=== PATIENT | male | born 1995 | race Caucasian/White ===

== ENCOUNTER 2022-07-03 17:54 | Emergency (ER) | payer SELFPAY ==
[2022-07-03 18:06] VITALS: BP 135/78; PULSE 113; RESP 18; TEMP 36.3; O2SAT 98; BMI 23.1
[2022-07-03 19:13] LABS: Basophils # 0.1 10^3/uL (0.0-0.1); Basophils % 0.4 %; Eosinophils # 0.1 10^3/uL (0.0-0.8); Eosinophils % 0.4 %; Hematocrit 45.9 % (42.0-52.0); Hemoglobin 15.8 g/dL (11.7-16.6); Lymphocytes # 2.3 10^3/uL (0.8-4.8); Lymphocytes % 18.8 %; Mean Corpuscular HGB Conc 34.4 g/dL (30.0-36.0); Mean Corpuscular Hemoglobin 30.6 pg (28.0-34.0); Mean Platelet Volume 12.5 fL (7.4-10.4); Monocytes # 0.8 10^3/uL (0.2-0.9); Monocytes % 6.4 %; Neutrophils # 9.02 10^3/uL (1.8-7.7); Neutrophils % 73.7 %; Nucleated Red Blood Cells % 0 %; Platelet Count 198 10^3/cmm (130-400); Red Blood Count 5.16 10^6/uL (4.1-5.3); Red Cell Distribution Width 12.2 % (12.1-15.1); White Blood Count 12.3 10^3/uL (4.0-10.0)
--- NOTE | 2022-07-03 19:18 | CTR_ITS ---
PROCEDURE INFORMATION: Exam: CT Abdomen And Pelvis With Contrast Exam date and time: 07/03/2022 7:32 PM Age: 26 years old Clinical indication: Abdominal pain; Localized; Left upper quadrant (luq); Additional info: Luq pain TECHNIQUE: Imaging protocol: Computed tomography of the abdomen and pelvis with contrast. Radiation optimization: All CT scans at this facility use at least one of these dose optimization techniques: automated exposure control; mA and/or kV adjustment per patient size (includes targeted exams where dose is matched to clinical indication); or iterative reconstruction. Contrast material: OMNI 350; Contrast volume: 100 ml; Contrast route: INTRAVENOUS (IV); COMPARISON: No relevant prior studies available. RADIATION DOSE METRICS: Total DLP (mGy-cm): 499.8 FINDINGS: Liver: Normal. No mass. Gallbladder and bile ducts: Normal. No calcified stones. No ductal dilation. Pancreas: Normal. No ductal dilation. Spleen: Normal. No splenomegaly. Adrenal glands: Normal. No mass. Kidneys and ureters: Normal. No hydronephrosis. Stomach and bowel: Left colon wall thickening may reflect a colitis in the appropriate clinical setting. Appendix: No evidence of appendicitis. Intraperitoneal space: Unremarkable. No free air. No significant fluid collection. Vasculature: Unremarkable. No abdominal aortic aneurysm. Lymph nodes: Unremarkable. No enlarged lymph nodes. Urinary bladder: Unremarkable as visualized. Reproductive: Unremarkable as visualized. Bones/joints: Unremarkable. No acute fracture. Soft tissues: Unremarkable. CT/CT abdomen pelvis w con* [id number] IMPRESSION: Left colon wall thickening may reflect a colitis in the appropriate clinical setting.
--- NOTE | 2022-07-03 19:19 | W.ED.ABDPA2 ---
HPI - Abdominal Pain General: Chief Complaint: Abdominal Pain Stated Complaint: Abd Pain Time Seen by Provider: 07/03/22 19:08 History of Present Illness: 26-year-old male with alcoholism history. He has not drank in 3 to 4 months. He does have a history of alcoholic pancreatitis. He presents with left upper quadrant pain, over the past couple of months essentially. This is worsened today, with vomiting. No fever. No history of belly surgery. No significant change in the urine. He has had black tarry stools at times, but without malathi blood. He says that it looks like there may have been some blood streaking in his vomitus this afternoon. MD elicited complaint: abdominal pain Pertinent past history: other Onset (ago): month(s) Pain Consistency: intermittent Location: LUQ Severity: moderate Quality: stabbing and aching Radiation: none Migration to: no migration Exacerbating factors: nothing Relieving factors: nothing Associated Symptoms: Reports hematemesis (Possibly), melena (None currently), nausea and vomiting; Denies coffee ground emesis, constipation, diarrhea, fever(s) and hematochezia Review of Systems Const: Denies: fever(s) Eyes: Denies: change in vision Card: Denies: chest pain or palpitations Resp: Denies: dyspnea, productive cough, non-productive cough or wheezing GI: Reports: nausea, vomiting, hematemesis (Possibly) and melena (None currently); Denies: coffee ground emesis, diarrhea, constipation or hematochezia Skin/Breast: Denies: rash Neuro: Denies: headache(s), weakness in extremities, dizziness or confusion Physical Exam Const: COMMON NORMALS: no acute distress GENERAL APPEARANCE: cooperative; not ill appearing and not frail appearing HENMT: COMMON NORMALS: normocephalic, atraumatic and Normal external nose present HEAD & SCALP: normocephalic and atraumatic FACE & SINUS: normal facial exam and face symmetric NOSE: Normal external nose present Eye: COMMON NORMALS: Equal, round and reactive pupils present and EOMs intact bilaterally PUPIL: Yes Equal, round and reactive pupils present Neck/C-Spine: GENERAL: Yes trachea midline Chest: CHEST: Yes Symmetrical chest wall rise Resp: COMMON NORMALS: normal respiratory effort, No retractions, No use of accessory muscles and clear to auscultation bilaterally AUSCULTATION: clear to auscultation bilaterally Cardio: COMMON NORMALS: regular rate and regular rhythm RATE: regular rate RHYTHM: regular rhythm GI: COMMON NORMALS: Normal to inspection, nondistended, normoactive bowel sounds present PALPATION: Yes Tenderness to palpation present (GI) Details: LUQ Extremity: COMMON NORMALS: no pedal edema Neuro: ELOY COMA SCALE: document GCS findings [place] coma scale eye opening: Spontaneous [place] coma scale verbal response: Orientated [place] coma scale motor response: Obey commands [place] coma scale total score: 15 SENSORY EXAM: Yes extremities (intact) Psych: COMMON NORMALS: speech normal SPEECH: Yes normal speech Skin: COMMON NORMALS: no rashes or lesions noted GENERAL SKIN EXAM: no rashes or lesions noted Course Vital Signs: Vital signs: Vital Signs Temperature 97.4 F L 07/03/22 18:06 Pulse Rate 77 07/03/22 21:39 Respiratory Rate 16 07/03/22 21:39 Blood Pressure 115/75 07/03/22 21:39 Pulse Oximetry 100 07/03/22 21:39 Oxygen Delivery Me thod 07/03/22 18:06 MDM - Abdominal Pain Medical Decision Making White blood cell count is 12. CRP is not significantly elevated. Other laboratory is not remarkable. CT shows a left sided colitis, consistent with his symptoms. No evidence of pancreatitis. He will be placed on a short course of steroids, antibiotics, and symptom control. Given his age, and 2-month history on and off, inflammatory bowel disease is on the differential, so he will be referred to surgery for further evaluation in case of symptom recurrence Lab Data : 07/03/22 19:05 07/03/22 19:05 Labs/Radiology: Radiology Impressions Abdomen/Pelvis CT 07/03/22 19:18 IMPRESSION: Left colon wall thickening may reflect a colitis in the appropriate clinical setting. Laboratory Results WBC 12.3 10^3/uL (4.0-10.0) H 07/03/22 19:05 RBC 5.16 10^6/uL (4.1-5.3) 07/03/22 19:05 Hgb 15.8 g/dL (11.7-16.6) 07/03/22 19:05 Hct 45.9 % (42.0-52.0) 07/03/22 19:05 MCV 89.0 fl (80-94) 07/03/22 19:05 MCH 30.6 pg (28.0-34.0) 07/03/22 19:05 MCHC 34.4 g/dL (30.0-36.0) 07/03/22 19:05 RDW 12.2 % (12.1-15.1) 07/03/22 19:05 Plt Count 198 10^3/cmm (130-400) 07/03/22 19:05 MPV 12.5 fL (7.4-10.4) H 07/03/22 19:05 Neut % (Auto) 73.7 % 07/03/22 19:05 Lymph % (Auto) 18.8 % 07/03/22 19:05 [place] % (Auto) 6.4 % 07/03/22 19:05 Eos % (Auto) 0.4 % 07/03/22 19:05 Baso % (Auto) 0.4 % 07/03/22 19:05 Neut # (Auto) 9.02 10^3/uL (1.8-7.7) H 07/03/22 19:05 Lymph # (Auto) 2.3 10^3/uL (0.8-4.8) 07/03/22 19:05 [place] # (Auto) 0.8 10^3/uL (0.2-0.9) 07/03/22 19:05 Eos # (Auto) 0.1 10^3/uL (0.0-0.8) 07/03/22 19:05 Baso # (Auto) 0.1 10^3/uL (0.0-0.1) 07/03/22 19:05 Nucleated RBC % (auto) 0 % 07/03/22 19:05 Nucleated RBCs # 0.0 /100WBC 07/03/22 19:05 Sodium 135 mmol/L (136-145) L 07/03/22 19:05 Potassium 3.6 mmol/L (3.5-5.1) 07/03/22 19:05 Chloride 100 mmol/L (98-107) 07/03/22 19:05 Carbon Dioxide 23 mmol/L (22-29) 07/03/22 19:05 Anion Gap 15.6 (5-19) 07/03/22 19:05 BUN 10 mg/dL (6-20) 07/03/22 19:05 Creatinine 1.0 mg/dL (0.7-1.2) 07/03/22 19:05 GFR Calculation 91.0 mL/min (90-130) 07/03/22 19:05 Glucose 90 mg/dL (65-115) 07/03/22 19:05 Calculated Osmolality 279 mOsm/kg (285-295) L 07/03/22 19:05 Calcium 9.5 mg/dL (8.5-10.5) 07/03/22 19:05 Total Bilirubin 1.6 mg/dL (0.15-1.2) H 07/03/22 19:05 AST 17 U/L (0-40) 07/03/22 19:05 ALT 18 U/L (0-41) 07/03/22 19:05 Alkaline Phosphatase 102 U/L (40-130) 07/03/22 19:05 C-Reactive Protein 3.0 mg/L (0.0-4.9) 07/03/22 19:05 Total Protein 7.1 g/dL (6.6-8.7) 07/03/22 19:05 Albumin 4.3 g/dL (3.5-5.2) 07/03/22 19:05 Globulin 2.8 g/dL (1.3-4.6) 07/03/22 19:05 Lipase 12 U/L (13-60) L 07/03/22 19:05 Urine Color Yellow (Yellow) 07/03/22 19:40 Urine Appearance Clear (CLEAR) 07/03/22 19:40 Urine pH 8 (5-7) H 07/03/22 19:40 Ur Specific [place] 1.010 (1.005-1.030) 07/03/22 19:40 Urine Protein Neg (Negative) 07/03/22 19:40 Urine Glucose (UA) Norm (Normal) 07/03/22 19:40 Urine Ketones 1+ (Negative) H 07/03/22 19:40 Urine Blood Neg (Negative) 07/03/22 19:40 Urine Nitrate Negative (Negative) 07/03/22 19:40 Urine Bilirubin Neg (Negative) 07/03/22 19:40 Prot Sulfosalicylic Acd Negative (Negative) 07/03/22 19:40 Urine Urobilinogen Neg mg/dL (Negative) 07/03/22 19:40 Ur Leukocyte Esterase Negative (Negative) 07/03/22 19:40 Discharge Plan Discharge Patient Disposition: Home Clinical Impression: Colitis Condition: Stable Prescriptions: New hydrocodone-acetaminophen 5-325 mg tablet 1 tab PO Q8H PRN (Reason: pain) Qty: 7 0RF Medrol (Vishnu) 4 mg tablets,dose pack See Rx Instructions .ROUTE .COMPLEX Qty: 21 0RF Rx Instructions: orally per package directions ondansetron 4 mg film 4 mg PO DAILY PRN (Reason: nausea and vomiting) Qty: 10 0RF metronidazole 500 mg tablet 500 mg PO Q8H 7 Days Qty: 21 0RF ciprofloxacin HCl 500 mg tablet 500 mg PO BID Qty: 14 0RF Discharge Orders: Discharge ED (Routine); Ordered 07/03/22 Ordered By: Benny Garza Referrals: Ihsan Marcano MD [Physician] - 4-7 days Discharge Diet: Advance as tolerated and Clear Liquid Discharge Activity: Increase activity as tolerated Patient Instructions: Colitis (ED), Opioid Safety, Pain Management Activity Restrictions/Additional Instructions: Medications as instructed. Take nausea medication every 6 hours while awake for the next 24 hours, then as needed. Pain medication as directed. Return for fever despite 2-3 doses of antibiotics, worsening pain despite treatment, vomiting liquids or medications despite treatment, other concerning symptoms. Follow a liquid diet for the next 24 hours, then increase as tolerated. Given your history of symptoms on and off for a couple of months, he will be referred to the surgery clinic, as they may wish to perform a further outpatient work-up, to include potential colonoscopy once you have been treated. Coding Level of Care Code ED Tourist Information Officer for Chg Fwd Exam Comprehensive
[2022-07-03] MEDS: iohexol 350 mg/mL 100 mL Btl IV (19:26)
[2022-07-03 19:32] VITALS: RESP 16
[2022-07-03] MEDS: sodium chloride 0.9% 1,000 ML 999 ML IV (19:32)
[2022-07-03] MEDS: ondansetron 2 mg/ML SDV 2 mL 4 MG IVP (19:32)
[2022-07-03] MEDS: morphine 4 mg/mL SDV 1 mL IVP (19:32)
[2022-07-03 19:35] LABS: Alanine Aminotransferase 18 U/L (0-41); Albumin Level 4.3 g/dL (3.5-5.2); Alkaline Phosphatase 102 U/L (40-130); Anion Gap 15.6 (5-19); Aspartate Amino Transferase 17 U/L (0-40); Blood Urea Nitrogen 10 mg/dL (6-20); Calcium 9.5 mg/dL (8.5-10.5); Carbon Dioxide 23 mmol/L (22-29); Chloride 100 mmol/L (98-107); Globulin 2.8 g/dL (1.3-4.6); Glucose 90 mg/dL (65-115); Lipase 12 U/L (13-60); Osmolality Calculated 279 mOsm/kg (285-295); Potassium 3.6 mmol/L (3.5-5.1); Sodium 135 mmol/L (136-145); Total Bilirubin 1.6 mg/dL (0.15-1.2); Total Protein 7.1 g/dL (6.6-8.7)
[2022-07-03 20:00] LABS: Add Urine Microscopic? NO; Charge for UA Resulting for Rev
[2022-07-03 20:13] LABS: Bilirubin Urine Neg (Negative); Blood Urine Neg (Negative); Glucose Urine UA Norm (Normal); Ketones Urine 1+ (Negative); Leukocyte Esterase Urine Negative (Negative); Nitrate Urine Negative (Negative); Protein Urine Neg (Negative); Sulfosalicylic Acid Urine Negative (Negative); Urine Appearance Clear (CLEAR); Urine Color Yellow (Yellow); Urobilinogen Urine Neg (Negative); pH Urine 8 (5-7)
[2022-07-03] MEDS: ciprofloxacin 500 mg Tablet PO (21:13)
[2022-07-03] MEDS: metroNIDAZOLE 500 MG Tablet PO (21:13)
[2022-07-03] MEDS: dexamethasone 4 mg/mL INJ 8 MG IVP (21:13)
[2022-07-03 21:39] VITALS: BP 115/75; PULSE 77; RESP 16; O2SAT 100
== END 2022-07-03 21:40 | disposition home or self-care (01) ==
PROVIDERS: Physician Assistant; Emergency Provider Emergency Medicine
DX: K52.9 Noninfective gastroenteritis and colitis, unspecified (principal)
CPT/HCPCS: 36415; 74177; 80053; 81003; 83690; 85025; 86140; 96374; 96375; 99285; J1100; J2270; J2405; J7030; Q9967

== ENCOUNTER 2022-10-30 12:32 | Emergency (ER) | payer MEDICAID, SELFPAY ==
[2022-10-30 12:48] VITALS: BP 145/97; PULSE 112; TEMP 36.4; O2SAT 99; BMI 20.5
[2022-10-30 13:51] LABS: Basophils % 0.4 %; Eosinophils % 0.4 %; Hematocrit 50.3 % (42.0-52.0); Hemoglobin 17.5 g/dL (11.7-16.6); Lymphocytes # 1.3 10^3/uL (0.8-4.8); Lymphocytes % 13.1 %; Mean Corpuscular HGB Conc 34.8 g/dL (30.0-36.0); Mean Corpuscular Hemoglobin 31.1 pg (28.0-34.0); Mean Corpuscular Volume 89.5 fl (80-94); Mean Platelet Volume 11.7 fL (7.4-10.4); Monocytes # 0.6 10^3/uL (0.2-0.9); Monocytes % 6.3 %; Neutrophils # 7.95 10^3/uL (1.8-7.7); Neutrophils % 79.6 %; Nucleated Red Blood Cells % 0 %; Platelet Count 200 10^3/cmm (130-400); Red Blood Count 5.62 10^6/uL (4.1-5.3); Red Cell Distribution Width 12.7 % (12.1-15.1)
[2022-10-30 14:17] LABS: Alanine Aminotransferase 22 U/L (0-41); Albumin Level 4.2 g/dL (3.5-5.2); Alkaline Phosphatase 109 U/L (40-130); Anion Gap 19.3 (5-19); Aspartate Amino Transferase 40 U/L (0-40); Blood Urea Nitrogen 5 mg/dL (6-20); Calcium 8.9 mg/dL (8.5-10.5); Carbon Dioxide 21 mmol/L (22-29); Chloride 98 mmol/L (98-107); Creatinine Clr Calc Pharmacy 177.2202; Globulin 2.3 g/dL (1.3-4.6); Glomerular Filtration Rate 136.3 mL/min (90-130); Glucose 86 mg/dL (65-115); Lipase 44 U/L (13-60); Osmolality Calculated 277 mOsm/kg (285-295); Potassium 3.3 mmol/L (3.5-5.1); Sodium 135 mmol/L (136-145); Total Bilirubin 3.8 mg/dL (0.15-1.2); Total Protein 6.5 g/dL (6.6-8.7)
[2022-10-30 15:00] VITALS: BP 149/103; PULSE 99; RESP 17; O2SAT 96
--- NOTE | 2022-10-30 15:06 | CTR_ITS ---
PROCEDURE INFORMATION: Exam: CT Abdomen And Pelvis With Contrast Exam date and time: 10/30/2022 3:17 PM Age: 27 years old Clinical indication: Abdominal pain; Epigastric; Additional info: Epigastric pain, HX of hospitalization due to pancreatitis TECHNIQUE: Imaging protocol: Computed tomography of the abdomen and pelvis with contrast. Radiation optimization: All CT scans at this facility use at least one of these dose optimization techniques: automated exposure control; mA and/or kV adjustment per patient size (includes targeted exams where dose is matched to clinical indication); or iterative reconstruction. Contrast material: OMNI 350; Contrast volume: 100 ml; Contrast route: INTRAVENOUS (IV); REPORTING DATA: Count of CT and Cardiac NM exams in prior 12 months: This patient has received [address] and 0 known cardiac nuclear medicine studies in the 12 months prior to the current study. COMPARISON: CT abdomen pelvis w con* [id number] 07/03/2022 7:32 PM RADIATION DOSE METRICS: Total DLP (mGy-cm): 418.53 FINDINGS: Liver: Normal. No mass. Gallbladder and bile ducts: Normal. No calcified stones. No ductal dilation. Pancreas: Normal. No ductal dilation. Spleen: Normal. No splenomegaly. Adrenal glands: Normal. No mass. Kidneys and ureters: Normal. No hydronephrosis. Stomach and bowel: Unremarkable. No obstruction. No mucosal thickening. Appendix: No evidence of appendicitis. Intraperitoneal space: Unremarkable. No free air. No significant fluid collection. Vasculature: Unremarkable. No abdominal aortic aneurysm. Lymph nodes: Unremarkable. No enlarged lymph nodes. Urinary bladder: Unremarkable as visualized. Reproductive: Unremarkable as visualized. Bones/joints: Unremarkable. No acute fracture. Soft tissues: Unremarkable. CT/CT abdomen pelvis w con* [id number] IMPRESSION: No acute findings.
[2022-10-30] MEDS: sodium chloride 0.9% 1,000 ML 999 ML IV (15:08)
[2022-10-30 15:16] LABS: Add Urine Microscopic? NO; Charge for UA Resulting for Rev
[2022-10-30] MEDS: iohexol 350 mg/mL 500 mL Btl (per mL) IV (15:21)
[2022-10-30 15:24] LABS: Bilirubin Urine Neg (Negative); Blood Urine Neg (Negative); Glucose Urine UA Norm (Normal); Ketones Urine 2+ (Negative); Leukocyte Esterase Urine Negative (Negative); Nitrate Urine Negative (Negative); Protein Urine Neg (Negative); Urine Appearance Clear (CLEAR); Urine Color Yellow (Yellow); Urobilinogen Urine Norm (Negative); pH Urine 6 (5-7)
[2022-10-30 16:41] VITALS: RESP 16; O2SAT 100
[2022-10-30] MEDS: morphine 4 mg/mL SDV 1 mL 2 MG IVP (16:41)
[2022-10-30] MEDS: ketorolac 30 mg/mL INJ 15 MG IVP (16:41)
[2022-10-30] MEDS: ondansetron 2 mg/ML SDV 2 mL 4 MG IVP (16:42)
[2022-10-30 17:42] VITALS: BP 128/75; PULSE 82; RESP 15; O2SAT 100
--- NOTE | 2022-10-30 17:58 | W.ED.ABDPA2 ---
HPI - Abdominal Pain General: Chief Complaint: Abdominal Pain Stated Complaint: abd pain Time Seen by Provider: 10/30/22 12:58 Source: patient Mode of arrival: ambulatory Limitations: no limitations History of Present Illness: Patient presents emergency department today for evaluation treatment of epigastric pain the last couple of days. Patient has known history of recurrent pancreatitis with multiple hospitalizations. Patient also has a history of elevated liver enzymes. Patient denies any known trigger for his episode today however, he does believe he might of eaten some more greasy or fatty foods in the last few days. Patient states he takes kratom regularly and states he has been using it the last couple weeks as well. Patient has not had a vomiting but has been nauseated. He has chills but no recorded fevers. He reports epigastric pain radiating into his back. No diarrhea. Patient reports he has been trying to adhere to a somewhat clear liquid diet the last day or 2. Associated Symptoms: Reports nausea; Denies vomiting Review of Systems General: Reports: 10 or more systems reviewed and unremarkable except in HPI and below GI: Reports: abdominal pain and nausea; Denies: vomiting Physical Exam Const: COMMON NORMALS: no acute distress, patient oriented x3 and alert HENMT: COMMON NORMALS: normocephalic, atraumatic, hearing grossly normal bilaterally and moist oral mucous membranes HEAD & SCALP: normocephalic and atraumatic Eye: COMMON NORMALS: Equal, round and reactive pupils present, EOMs intact bilaterally and conjunctivae normal CONJUNCTIVA: Yes conjunctivae normal PUPIL: Yes Equal, round and reactive pupils present Neck/C-Spine: COMMON NORMALS: full ROM and no JVD Lymph: LYMPHATIC: no lymphadenopathy noted Resp: COMMON NORMALS: normal respiratory effort, No retractions, No use of accessory muscles and clear to auscultation bilaterally AUSCULTATION: clear to auscultation bilaterally Cardio: COMMON NORMALS: no JVD, regular rate and regular rhythm RATE: regular rate RHYTHM: regular rhythm GI: OTHER: Patient has tenderness on palpation to the epigastric region and distal retrosternal. No significant right upper quadrant or lower abdominal pain on examination. Abdomen is soft. Normal active bowel sounds. : COMMON NORMALS: Yes no CVA tenderness BLADDER/KIDNEY EXAM: Yes no CVA tenderness Back/Pelvis: COMMON NORMALS: no CVA tenderness, no thoracic nor lumbar tenderness and thoraco-lumbar ROM normal Extremity: COMMON NORMALS: normal to inspection, full ROM and capillary refill normal Neuro: COMMON NORMALS: patient oriented x3 SENSORIUM/ORIENTATION: Yes alert Psych: COMMON NORMALS: mental status grossly normal, Normal thought process present, cooperative, normal affect and activity/motor behavior normal THOUGHT PROCESS: Normal thought process present Skin: COMMON NORMALS: no rashes or lesions noted and no wounds GENERAL SKIN EXAM: no rashes or lesions noted Course Vital Signs: Vital signs: Vital Signs Temperature 97.5 F L 10/30/22 12:48 Pulse Rate 82 10/30/22 17:42 Respiratory Rate 15 10/30/22 17:42 Blood Pressure 128/75 10/30/22 17:42 Pulse Oximetry 100 10/30/22 17:42 Oxygen Delivery Me thod 10/30/22 17:42 MDM - Abdominal Pain Medical Decision Making Patient presents emergency department today with complaints of recurrent epigastric pain, chills, and nausea. Patient reports recurrent issues with pancreatitis and believes he is beginning to have an episode. He has been trying to adhere to clear liquids recently but, comes in for treatment to prevent needing hospitalization. Patient's lab work is generally unremarkable. Patient CT examination shows no signs of any fluid, inflammation, or cyst on the pancreas. No signs of any acute concerns with his gallbladder. However, given the patient's history of pancreatitis and sensation of returning pancreatitis with epigastric pain radiating through the back, chills, and vomiting, we will treat him for concerns of an onset of pancreatitis. Patient was given antinausea medication and a very short course of some pain medicine. He is adhere to a clear liquid diet for the next 24 to 48 hours. Strict return precautions for any new onset fever, vomiting, or change or worsening of his pain discussed. DDx: Cholecystitis, cholelithiasis, pancreatitis, ileus, bowel obstruction, hiatal hernia Lab Data 10/30/22 13:40 10/30/22 13:40 Labs/Radiology: Radiology Impressions Abdomen/Pelvis CT 10/30/22 15:06 IMPRESSION: No acute findings. Laboratory Results WBC 10.0 10^3/uL (4.0-10.0) 10/30/22 13:40 RBC 5.62 10^6/uL (4.1-5.3) H 10/30/22 13:40 Hgb 17.5 g/dL (11.7-16.6) H 10/30/22 13:40 Hct 50.3 % (42.0-52.0) 10/30/22 13:40 MCV 89.5 fl (80-94) 10/30/22 13:40 MCH 31.1 pg (28.0-34.0) 10/30/22 13:40 MCHC 34.8 g/dL (30.0-36.0) 10/30/22 13:40 RDW 12.7 % (12.1-15.1) 10/30/22 13:40 Plt Count 200 10^3/cmm (130-400) 10/30/22 13:40 MPV 11.7 fL (7.4-10.4) H 10/30/22 13:40 Neut % (Auto) 79.6 % 10/30/22 13:40 Lymph % (Auto) 13.1 % 10/30/22 13:40 [place] % (Auto) 6.3 % 10/30/22 13:40 Eos % (Auto) 0.4 % 10/30/22 13:40 Baso % (Auto) 0.4 % 10/30/22 13:40 Neut # (Auto) 7.95 10^3/uL (1.8-7.7) H 10/30/22 13:40 Lymph # (Auto) 1.3 10^3/uL (0.8-4.8) 10/30/22 13:40 [place] # (Auto) 0.6 10^3/uL (0.2-0.9) 10/30/22 13:40 Eos # (Auto) 0.0 10^3/uL (0.0-0.8) 10/30/22 13:40 Baso # (Auto) 0.0 10^3/uL (0.0-0.1) 10/30/22 13:40 Nucleated RBC % (auto) 0 % 10/30/22 13:40 Nucleated RBCs # 0.0 /100WBC 10/30/22 13:40 Sodium 135 mmol/L (136-145) L 10/30/22 13:40 Potassium 3.3 mmol/L (3.5-5.1) L 10/30/22 13:40 Chloride 98 mmol/L (98-107) 02/25/23 13:40 Carbon Dioxide 21 mmol/L (22-29) L 10/30/22 13:40 Anion Gap 19.3 (5-19) H 10/30/22 13:40 BUN 5 mg/dL (6-20) L 10/30/22 13:40 Creatinine 0.7 mg/dL (0.7-1.2) 10/30/22 13:40 GFR Calculation 136.3 mL/min (90-130) H 10/30/22 13:40 Glucose 86 mg/dL (65-115) 10/30/22 13:40 Calculated Osmolality 277 mOsm/kg (285-295) L 10/30/22 13:40 Calcium 8.9 mg/dL (8.5-10.5) 10/30/22 13:40 Total Bilirubin 3.8 mg/dL (0.15-1.2) H 10/30/22 13:40 AST 40 U/L (0-40) 10/30/22 13:40 ALT 22 U/L (0-41) 10/30/22 13:40 Alkaline Phosphatase 109 U/L (40-130) 10/30/22 13:40 Total Protein 6.5 g/dL (6.6-8.7) L 10/30/22 13:40 Albumin 4.2 g/dL (3.5-5.2) 10/30/22 13:40 Globulin 2.3 g/dL (1.3-4.6) 10/30/22 13:40 Lipase 44 U/L (13-60) 10/30/22 13:40 Urine Color Yellow (Yellow) 10/30/22 14:50 Urine Appearance Clear (CLEAR) 10/30/22 14:50 Urine pH 6 (5-7) 10/30/22 14:50 Ur Specific [place] 1.010 (1.005-1.030) 10/30/22 14:50 Urine Protein Neg (Negative) 10/30/22 14:50 Urine Glucose (UA) Norm (Normal) 10/30/22 14:50 Urine Ketones 2+ (Negative) H 10/30/22 14:50 Urine Blood Neg (Negative) 10/30/22 14:50 Urine Nitrate Negative (Negative) 10/30/22 14:50 Urine Bilirubin Neg (Negative) 10/30/22 14:50 Urine Urobilinogen Norm mg/dL (Negative) 10/30/22 14:50 Ur Leukocyte Esterase Negative (Negative) 10/30/22 14:50 Discharge Plan Discharge Patient Disposition: Home Clinical Impression: Abdominal pain, acute, epigastric, Hx of acute pancreatitis Condition: Stable Prescriptions: New ondansetron 4 mg tablet,disintegrating 4 mg PO Q8H 5 Days Qty: 15 0RF hydrocodone-acetaminophen 5-325 mg tablet 1 tab PO Q6H PRN (Reason: pain) 3 Days Qty: 10 0RF No Action hydrocodone-acetaminophen 5-325 mg tablet 1 tab PO Q8H PRN (Reason: pain) Qty: 7 0RF Medrol (Vishnu) 4 mg tablets,dose pack See Rx Instructions .ROUTE .COMPLEX Qty: 21 0RF Rx Instructions: orally per package directions ondansetron 4 mg film 4 mg PO DAILY PRN (Reason: nausea and vomiting) Qty: 10 0RF ciprofloxacin HCl 500 mg tablet 500 mg PO BID Qty: 14 0RF Discharge Orders: Discharge ED (Routine); Ordered 10/30/22 Ordered By: Pili Mehta Discharge Diet: Full [place] Discharge Activity: Increase activity as tolerated Patient Instructions: Clear Liquid Diet (ED), Abdominal Pain (ED) Activity Restrictions/Additional Instructions: Lab work today is generally unremarkable. CT examination shows no acute inflammation or masses around the pancreas, issues with the gallbladder, or issues with the bowel. Given your history, it is possible that you are starting to experience early symptoms of acute pancreatitis however, it has not worsened enough to show in a CT examination or require hospitalization this time. For the next 24 to 48 hours we would like you to adhere to a clear liquid diet. Have given you some antinausea medication as well as medication for pain. However, if you spike a fever, begin having vomiting with inability to tolerate your fluids, or have acute worsening/change in your abdominal pain you should be seen and reevaluated. Coding Level of Care Code ED Long Winder Tender for Ricky Quintana
== END 2022-10-30 17:34 | disposition home or self-care (01) ==
PROVIDERS: Emergency Provider Physician Assistant
DX: R10.13 Epigastric pain (principal); K85.90 Acute pancreatitis without necrosis or infection, unspecified
CPT/HCPCS: 36415; 74177; 80053; 81003; 83690; 85025; 96361; 96374; 96375; 99285; J1885; J2270; J2405; J7030; Q9967

== ENCOUNTER 2022-12-17 06:06 | Inpatient (IN) | payer MEDICAID, SELFPAY ==
[2022-12-17] VITALS (16 sets, daily range): BP systolic 119–148; BP diastolic 75–103; PULSE 80–91; RESP 16–23; TEMP 36.6–36.8; O2SAT 95–98; BMI 21.2
--- NOTE | 2022-12-17 07:02 | ED_ITS ---
HPI - Abdominal Pain General: Chief Complaint: Abdominal Pain Stated Complaint: abd pain Time Seen by Provider: 12/17/22 06:07 Source: patient Mode of arrival: ambulatory History of Present Illness: 27-year-old male presents emergency room complaining of abdominal pain that he localizes to the epigastric and left upper quadrant radiating into the back. He said history of colitis and previous episodes of pancreatitis he has some early fatty liver changes he has been a chronic alcohol drinker in the past but has stopped now. He has had nausea and vomiting with this vomiting is been bilious in nature. He denies any medic easy melena hematemesis coffee-ground emesis no dysuria urgency or frequency no hematuria. He is intermittently had symptoms of abdominal pain for the last several months because this particular episode began getting worse last yesterday worse throughout the to the point that he came into the emergency room. MD elicited complaint: abdominal pain Pertinent past history: none Onset (ago): day(s) (1) Pain Consistency: constant Location: [facility] Severity: severe Quality: stabbing and sharp Radiation: epigastric and back Exacerbating factors: nothing Relieving factors: nothing Associated Symptoms: Reports nausea and vomiting; Denies anorexia, belching, bloating, change in bowel habits, change in stool character, chills, coffee ground emesis, constipation, GI cramping, diarrhea, dyspepsia, dysuria, excessive flatus, fever(s), heartburn, hematochezia, hematuria, hematemesis, fecal incontinence, loose stools, melena, poor appetite and syncope Review of Systems Const: Denies: fever(s), chills, fatigue or malaise ENMT: Denies: throat pain, ear or mastoid pain, nasal discharge or nasal congestion Card: Denies: chest pain or syncope Resp: Denies: dyspnea, productive cough or non-productive cough GI: Reports: abdominal pain, nausea and vomiting; Denies: hematemesis, coffee ground emesis, heartburn, diarrhea, constipation, bloating, GI cramping, belching, excessive flatus, fecal incontinence, change in bowel habits, change in stool character, hematochezia or melena : Denies: dysuria, urinary frequency, urinary urgency or hematuria Skin/Breast: Denies: rash or pruritus PFS ED PFSH: Medical History (Updated 12/17/22 @ 09:06 by Narendra Geronimo DO) Colitis Physical Exam Const: GENERAL APPEARANCE: cooperative and comfortable ORIENTATION/CONSCIOUSNESS: Yes awake, Yes oriented to person, Yes oriented to place and Yes oriented to time HENMT: COMMON NORMALS: normocephalic, atraumatic and hearing grossly normal bilaterally HEAD & SCALP: normocephalic and atraumatic Resp: COMMON NORMALS: normal respiratory effort, No retractions, No use of accessory muscles and clear to auscultation bilaterally AUSCULTATION: clear to auscultation bilaterally Cardio: COMMON NORMALS: regular rate, regular rhythm and No murmurs present (Cardio) RATE: regular rate RHYTHM: regular rhythm GI: COMMON NORMALS: No hepatosplenomegaly present AUSCULTATION: Yes normoactive bowel sounds PALPATION: Yes Tenderness to palpation present (GI) (diffuse), No Guarding due to palpation present (GI) and Yes No hepatosplenomegaly present : COMMON NORMALS: Yes no CVA tenderness BLADDER/KIDNEY EXAM: Yes no CVA tenderness Back/Pelvis: COMMON NORMALS: no CVA tenderness Extremity: COMMON NORMALS: normal to inspection, capillary refill normal, no clubbing, cyanosis or edema, no calf tenderness and no pedal edema Neuro: SENSORIUM/ORIENTATION: Yes oriented to person, Yes oriented to place and Yes oriented to time Skin: COMMON NORMALS: no rashes or lesions noted GENERAL SKIN EXAM: no rashes or lesions noted Course Vital Signs: Vital signs: Vital Signs Temperature 97.9 F 12/17/22 07:06 Pulse Rate 84 12/17/22 07:06 Respiratory Rate 18 12/17/22 08:52 Blood Pressure 144/103 12/17/22 07:06 Pulse Oximetry 97 12/17/22 07:06 Oxygen Delivery Me thod Room Air 12/17/22 07:06 MDM - Abdominal Pain Medical Decision Making Acute pancreatitis triglycerides pending. We will admit IV fluids GI rest antiemetics as needed pain medications as needed discussed Dr. Narayanan orders written. No other significant findings on the CT, no perforation no obstruction no colitis. Medical Records I reviewed the patient's medical records. Lab Data I reviewed the patient's lab results. 12/17/22 07:10 12/17/22 07:10 Labs/Radiology: Radiology Impressions Abdomen/Pelvis CT 12/17/22 08:05 IMPRESSION: 1. Enlarged pancreas with diffuse pancreatic edema. Marked surrounding inflammatory stranding with a small amount of scattered fluid compatible with acute pancreatitis. Recommend correlation with pancreatic enzymes. 2. Reactive peripancreatic lymph nodes. 3. Small amount of free fluid in the pelvis. 4. No other acute findings. Laboratory Results WBC 15.5 10^3/uL (4.0-10.0) H 12/17/22 07:10 RBC 5.61 10^6/uL (4.1-5.3) H 12/17/22 07:10 Hgb 17.4 g/dL (11.7-16.6) H 12/17/22 07:10 Hct 49.5 % (42.0-52.0) 12/17/22 07:10 MCV 88.2 fl (80-94) 12/17/22 07:10 MCH 31.0 pg (28.0-34.0) 12/17/22 07:10 MCHC 35.2 g/dL (30.0-36.0) 12/17/22 07:10 RDW 12.1 % (12.1-15.1) 12/17/22 07:10 Plt Count 199 10^3/cmm (130-400) 12/17/22 07:10 MPV 11.7 fL (7.4-10.4) H 12/17/22 07:10 Neut % (Auto) 87.5 % 12/17/22 07:10 Lymph % (Auto) 6.6 % 12/17/22 07:10 [place] % (Auto) 5.0 % 12/17/22 07:10 Eos % (Auto) 0.1 % 12/17/22 07:10 Baso % (Auto) 0.4 % 12/17/22 07:10 Neut # (Auto) 13.59 10^3/uL (1.8-7.7) H 12/17/22 07:10 Lymph # (Auto) 1.0 10^3/uL (0.8-4.8) 12/17/22 07:10 [place] # (Auto) 0.8 10^3/uL (0.2-0.9) 12/17/22 07:10 Eos # (Auto) 0.0 10^3/uL (0.0-0.8) 12/17/22 07:10 Baso # (Auto) 0.1 10^3/uL (0.0-0.1) 12/17/22 07:10 Nucleated RBC % (auto) 0 % 12/17/22 07:10 Nucleated RBCs # 0.0 /100WBC 12/17/22 07:10 Sodium 140 mmol/L (136-145) 12/17/22 07:10 Potassium 3.3 mmol/L (3.5-5.1) L 12/17/22 07:10 Chloride 101 mmol/L (98-107) 12/17/22 07:10 Carbon Dioxide 22 mmol/L (22-29) 12/17/22 07:10 Anion Gap 20.3 (5-19) H 12/17/22 07:10 BUN 12 mg/dL (6-20) 12/17/22 07:10 Creatinine 0.9 mg/dL (0.7-1.2) 12/17/22 07:10 GFR Calculation 102.0 mL/min (90-130) 12/17/22 07:10 Glucose 104 mg/dL (65-115) 12/17/22 07:10 Calculated Osmolality 290 mOsm/kg (285-295) 12/17/22 07:10 Calcium 8.7 mg/dL (8.5-10.5) 12/17/22 07:10 Total Bilirubin 3.1 mg/dL (0.15-1.2) H 12/17/22 07:10 AST 31 U/L (0-40) 12/17/22 07:10 ALT 26 U/L (0-41) 12/17/22 07:10 Alkaline Phosphatase 114 U/L (40-130) 12/17/22 07:10 Total Protein 6.7 g/dL (6.6-8.7) 12/17/22 07:10 Albumin 4.2 g/dL (3.5-5.2) 12/17/22 07:10 Globulin 2.5 g/dL (1.3-4.6) 12/17/22 07:10 Lipase 737 U/L (13-60) H 12/17/22 07:10 Discharge Plan Discharge Patient Disposition: Admitted As Inpatient Clinical Impression: Pancreatitis Condition: Stable Coding Level of Care Code ED [employer] for Ricky Quintana
[2022-12-17] MEDS: ondansetron 2 mg/ML SDV 2 mL 4 MG IVP (07:20)
[2022-12-17] MEDS: sodium chloride 0.9% 1,000 ML 999 ML IV ×2 (07:21→08:48)
[2022-12-17 07:29] LABS: Basophils # 0.1 10^3/uL (0.0-0.1); Basophils % 0.4 %; Eosinophils % 0.1 %; Hematocrit 49.5 % (42.0-52.0); Hemoglobin 17.4 g/dL (11.7-16.6); Lymphocytes % 6.6 %; Mean Corpuscular HGB Conc 35.2 g/dL (30.0-36.0); Mean Corpuscular Volume 88.2 fl (80-94); Mean Platelet Volume 11.7 fL (7.4-10.4); Monocytes # 0.8 10^3/uL (0.2-0.9); Neutrophils # 13.59 10^3/uL (1.8-7.7); Neutrophils % 87.5 %; Nucleated Red Blood Cells % 0 %; Platelet Count 199 10^3/cmm (130-400); Red Blood Count 5.61 10^6/uL (4.1-5.3); Red Cell Distribution Width 12.1 % (12.1-15.1); White Blood Count 15.5 10^3/uL (4.0-10.0)
[2022-12-17 07:46] LABS: Alanine Aminotransferase 26 U/L (0-41); Albumin Level 4.2 g/dL (3.5-5.2); Alkaline Phosphatase 114 U/L (40-130); Anion Gap 20.3 (5-19); Aspartate Amino Transferase 31 U/L (0-40); Blood Urea Nitrogen 12 mg/dL (6-20); Calcium 8.7 mg/dL (8.5-10.5); Carbon Dioxide 22 mmol/L (22-29); Chloride 101 mmol/L (98-107); Globulin 2.5 g/dL (1.3-4.6); Glucose 104 mg/dL (65-115); Osmolality Calculated 290 mOsm/kg (285-295); Potassium 3.3 mmol/L (3.5-5.1); Sodium 140 mmol/L (136-145); Total Bilirubin 3.1 mg/dL (0.15-1.2); Total Protein 6.7 g/dL (6.6-8.7)
[2022-12-17] MEDS: morphine 4 mg/mL SDV 1 mL IVP ×4 (07:47→17:14)
[2022-12-17 07:53] LABS: Lipase 737 U/L (13-60)
--- NOTE | 2022-12-17 08:05 | CT_ITS ---
WS: [id number] CT ABDOMEN PELVIS TECHNIQUE: Noncontrast CT of the abdomen and pelvis with coronal and sagittal reformatted images. CLINICAL INFORMATION: Abdominal pain COMPARISON: CT October 30, 2022 DLP: 400.[address] scans at [facility] use at least one of these dose optimization techniques: automated e xposure control; mA and/or kV adjustment per patient size (includes targeted exams where dose is matc hed to clinical indication); or iterative reconstruction. FINDINGS: Diffuse edema involving the pancreas with surrounding inflammatory stranding and edema. Small amount of surrounding fluid. Findings compatible with acute pancreatitis. Surrounding peripancreatic reactiv e lymph nodes. Recommend correlation with pancreatic enzymes. Contrast not administered. Findings normal GE junction. Small amount of free fluid in the pelvis. Lung bases are well aerated. N oncontrast liver and spleen are normal. Normal gallbladder. Adrenal glands are normal. Caliber abdomi nal aorta. Mild sigmoid constipation. No evidence of small or large bowel obstruction. Adrenal glands are normal . No hydronephrosis in either kidney. Normal lumbar spine. CT/CT abdomen pelvis wo con [id number] IMPRESSION: 1. Enlarged pancreas with diffuse pancreatic edema. Marked surrounding inflamm atory stranding with a small amount of scattered fluid compatible with acute pa ncreatitis. Recommend correlation with pancreatic enzymes. 2. Reactive peripancreatic lymph nodes. 3. Small amount of free fluid in the pelvis. 4. No other acute findings.
[2022-12-17] MEDS: potassium chloride premix 100 ML 25 MEQ IV (08:48)
[2022-12-17 09:22] LABS: Triglycerides 134 mg/dL (0-150)
--- NOTE | 2022-12-17 09:56 | PM.HP ---
Providers/Chief Complaint Admitting Physician: Yosvany Narayanan MD Chief Complaint: abd pain History of Present Illness Glenn Aguilar is a 27 year old male presenting to the emergency department with abdominal discomfort, over the last 24 to 48 hours mainly located in his upper quadrants epigastric and left upper quadrant. He has vomited multiple times. No blood in his emesis. Stools have occasionally been a little dark. No bright red blood in stool. States that for the last several months he has been having more stomach issues. He has been off and on Prilosec, wondering if this may have contributed. He describes burning that goes up into his chest. He denies any recent fever or chills. He has a past history of pancreatitis years ago when he was drinking heavily, and was hospitalized for 5 days in [place]. He denies any alcoholic beverages currently. He does use THC regularly. Review of Systems General: Reports: 10 or more systems reviewed and unremarkable except in HPI and below Const: Denies: fever(s) or chills ENMT: Denies: throat pain Card: Denies: chest pain Resp: Denies: dyspnea GI: Reports: abdominal pain, nausea and vomiting; Denies: hematemesis or hematochezia Psych: Reports: depression Medications/Allergies Home Medications Medication Instructions Recorded Confirmed Last Taken Type ondansetron 4 mg oral soluble film 4 mg PO DAILY PRN nausea and 07/03/22 12/17/22 Unknown Rx vomiting #10 ea melatonin 10 mg tablet 20 mg PO BEDTIME 12/17/22 12/17/22 Unknown History omeprazole 40 mg capsule,delayed 40 mg PO DAILY 12/17/22 12/17/22 12/17/22 History release paroxetine HCl 20 mg tablet 20 mg PO DAILY 12/17/22 12/17/22 Unknown History Allergies Allergy/AdvReac Type Severity Reaction Status Date / Time No Known Allergies Allergy Verified 10/30/22 12:48 PFSH Acute PFSH: Medical History (Updated 12/17/22 @ 10:06 by Yosvany Narayanan MD) Colitis Depression Pancreatitis Social History (Updated 12/17/22 @ 10:00 by Yosvany Narayanan MD) Smoking and tobacco status: current every day smoker Alcohol intake: former Other PFSH information: Supplemental PFSH Information: No surgeries. Does have family history of depression. Reports he does not smoke tobacco, but vapes. Vitals/I&O/Wt Last Vital Signs Temp 97.9 F 12/17/22 07:06 Pulse 84 12/17/22 07:06 Resp 18 12/17/22 08:52 BP 144/103 12/17/22 07:06 Pulse Ox 97 12/17/22 07:06 O2 Del Method Room Air 12/17/22 07:06 12/16/22 12/17/22 12/17/22 22:59 06:59 14:59 Intake Total 1000 / 1000 Balance 1000 / 1000 Weight last 48 hrs Weight 74.843 kg Physical Exam Narrative: General exam is a white male, obviously uncomfortable with abdominal discomfort. HEENT: Atraumatic and normocephalic. Pupils equally round. Oropharynx clear. Neck is supple no lymphadenopathy thyromegaly Cardiovascular regular rate and rhythm without murmur Lungs clear no wheezing or crackles Abdomen is soft, positive bowel sounds. No obvious organomegaly. Tenderness is present epigastric, upper quadrants exam is deferred Extremities no cyanosis clubbing or edema, cap refill brisk Skin no rash Neuro no focal deficits Data 12/17/22 07:10 12/17/22 07:10 Other Labs: I have ordered a magnesium level Triglyceride level is normal Lipase level is 737 I have ordered a TSH Rest of LFTs with exception of bilirubin is normal. Bilirubin is 3.1. This has been noted to be elevated in the past and may suggest Martín-Ramon or rotor syndrome Abdomen pelvis CT demonstrates a large pancreas with edema, stranding. Some reactive nodes are noted and a small amount of free fluid in the pelvis. I reviewed the CT personally. A&P Assessment and plan (1) Pancreatitis: Patient presents with clinical symptomatology, radiological evidence, and pancreatic enzyme elevation all consistent with acute pancreatitis. He denies any alcohol use in the last several years. He does have a past history of pancreatitis which was attributed to alcohol. Triglyceride level has been checked and normal. We will go ahead and check TSH, magnesium level Continue aggressive IV hydration. Check CMP tomorrow, to evaluate for any electrolytes abnormality, renal dysfunction, calcium abnormalities that can occur with acute pancreatitis Check gallbladder ultrasound his bilirubin is elevated. However, I think this is most likely secondary to Martín's or rotors Clear liquids for now Pain control with morphine. Will not repeat lipase tomorrow, unless patient is not clinically improving. The above is associated with acute dehydration The above has been associated with recalcitrant nausea and vomiting (2) Elevated bilirubin: See above (3) Depression: Continue Paxil (4) Hypokalemia: Supplementation in the ER Check magnesium level Repeat potassium tomorrow Plan THC use. Discussed with him the possibility of cyclical vomiting with use. They are going to research. Full code Low risk for DVT, no prophylaxis Attestations Medical Necessity Statement*: Will need greater than 2 midnight stay for evaluation and treatment of acute pancreatitis with recalcitrant nausea and vomiting. Diagnoses Pancreatitis K85.90 Elevated bilirubin R17 Depression F32.A Hypokalemia E87.6 Time Spent (min) 49
[2022-12-17 10:17] LABS: Magnesium 1.9 mg/dL (1.7-2.3); Thyroid Stimulating Hormone 3.59 uIU/mL (0.27-4.20)
[2022-12-17] MEDS: lidocaine 1% INJ 10 mL (per mL) 5 ML IV (11:06)
[2022-12-17 11:48] LABS: Add Urine Microscopic? YES; Bilirubin Urine 1+ (Negative); Blood Urine Neg (Negative); Glucose Urine UA Norm (Normal); Ketones Urine 2+ (Negative); Leukocyte Esterase Urine Trace (Negative); Nitrate Urine Negative (Negative); Protein Urine 1+ (Negative); Urine Appearance Clear (CLEAR); Urine Color Orange (Yellow); pH Urine 6 (5-7)
[2022-12-17 11:49] LABS: Urobilinogen Urine 4 mg/dL (Negative)
[2022-12-17 11:50] LABS: Add Urine Culture? No; Bacteria Urine TRACE /hpf; Mucus Urine 3+ /hpf; RBC Urine 0-4 /hpf (0-2); Squamous Epithelial Cell Urine 0-4 /hpf (0-5); WBC Urine 0-4 /hpf (0-5)
--- NOTE | 2022-12-17 12:30 | US_ITS ---
WS: [id number] ABDOMINAL ULTRASOUND LIMITED REASON FOR EXAM: elevated bili COMPARISON: None available. ORDER DATE: 12/17/2022 12:53 PM TECHNIQUE: Grayscale and Doppler ultrasound examination of the abdomen. FINDINGS: Pancreas: Unremarkable as visualized Abdominal aorta and IVC: Unremarkable Liver: Liver measures 14.1 cm in length. Normal echotexture. No bile duct dilatation Gallbladder: Gallbladder wall thickness measures 0.2 mm. No evidence of cholelithiasis portal vein fl ow hepatopedal. Common bile duct 4 mm in diameter. Right kidney: Right kidney measures 10.2 cm x 4.7 cm x 3.9 cm. Right renal vascularity normal. No ascites US/US gall bladder [id number] IMPRESSION: Unremarkable sonogram evaluation.
[2022-12-17] MEDS: sodium chloride 0.9% 1,000 ML 150 ML IV ×2 (15:00→23:33)
[2022-12-17] MEDS: pantoprazole 40 mg SDV IVP (23:33)
[2022-12-18] VITALS (8 sets, daily range): BP systolic 126–134; BP diastolic 75–78; PULSE 80–95; RESP 10–18; TEMP 36.6–36.9; O2SAT 97–99
[2022-12-18 05:12] LABS: Basophils % 0.3 %; Eosinophils # 0.1 10^3/uL (0.0-0.8); Eosinophils % 1.6 %; Hematocrit 43.8 % (42.0-52.0); Hemoglobin 14.5 g/dL (11.7-16.6); Lymphocytes # 1.2 10^3/uL (0.8-4.8); Lymphocytes % 17.9 %; Mean Corpuscular HGB Conc 33.1 g/dL (30.0-36.0); Mean Corpuscular Hemoglobin 30.9 pg (28.0-34.0); Mean Corpuscular Volume 93.4 fl (80-94); Mean Platelet Volume 12.3 fL (7.4-10.4); Monocytes # 0.6 10^3/uL (0.2-0.9); Monocytes % 8.1 %; Neutrophils # 4.87 10^3/uL (1.8-7.7); Neutrophils % 71.7 %; Nucleated Red Blood Cells % 0 %; Platelet Count 123 10^3/cmm (130-400); Red Blood Count 4.69 10^6/uL (4.1-5.3); Red Cell Distribution Width 12.8 % (12.1-15.1); White Blood Count 6.8 10^3/uL (4.0-10.0)
[2022-12-18 05:15] LABS: Alanine Aminotransferase 41 U/L (0-41); Albumin Level 3.3 g/dL (3.5-5.2); Alkaline Phosphatase 133 U/L (40-130); Anion Gap 10.7 (5-19); Aspartate Amino Transferase 74 U/L (0-40); Blood Urea Nitrogen 7 mg/dL (6-20); Calcium 7.5 mg/dL (8.5-10.5); Carbon Dioxide 24 mmol/L (22-29); Chloride 103 mmol/L (98-107); Globulin 1.9 g/dL (1.3-4.6); Glomerular Filtration Rate 116.9 mL/min (90-130); Glucose 80 mg/dL (65-115); Osmolality Calculated 275 mOsm/kg (285-295); Potassium 3.7 mmol/L (3.5-5.1); Sodium 134 mmol/L (136-145); Total Bilirubin 2.9 mg/dL (0.15-1.2); Total Protein 5.2 g/dL (6.6-8.7)
[2022-12-18] MEDS: sodium chloride 0.9% 1,000 ML 150 ML IV ×2 (05:32→11:33)
[2022-12-18] MEDS: PARoxetine 20 mg Tablet PO (08:23)
[2022-12-18] MEDS: nicotine 14 mg Patch 1 PATCH TRANSDERMA (08:41)
[2022-12-18] MEDS: oxyCODONE-APAP 5-325 mg Tablet 1 TAB PO ×2 (08:41→14:43)
[2022-12-18] MEDS: pantoprazole 40 mg SDV IVP (11:42)
--- NOTE | 2022-12-18 12:56 | P.DS_ITS ---
Discharge Providers Date of Admission: 12/17/22 12:30 Date of Discharge: December 18, 2022 Attending Provider at Admission: Yosvany Narayanan MD Attending Provider at Discharge: Mauri Gottlieb MD Diagnoses at Discharge Discharge Diagnosis (1) Pancreatitis: Status: Acute (2) Elevated bilirubin: Status: Acute (3) Depression: Status: Acute (4) Hypokalemia: Status: Acute Reason for Visit Reason for Visit: abd pain Hospital Course Hospital Course HPI: Yosvany Narayanan MD Glenn Aguilar is a 27 year old male presenting to the emergency department with abdominal discomfort, over the last 24 to 48 hours mainly located in his upper quadrants epigastric and left upper quadrant.? He has vomited multiple times.? No blood in his emesis.? Stools have occasionally been a little dark.? No bright red blood in stool.? States that for the last several months he has been having more stomach issues.? He has been off and on Prilosec, wondering if this may have contributed.? He describes burning that goes up into his chest.? He denies any recent fever or chills.? He has a past history of pancreatitis years ago when he was drinking heavily, and was hospitalized for 5 days in [place].? He denies any alcoholic beverages currently.? He does use THC regularly. Hospital course: Was admitted for the management of acute pancreatitis, was kept on conservative medical management, pain control IV fluids, initially was on clear liquids, once the pain of was better controlled and he was able to take p.o. diet was advanced to GI soft which he tolerated well, He also had elevated total bilirubin, ultrasound gallbladder was unremarkable.At the time of discharge it was improving, no acute intervention was done during the hospital stay, he will have to follow-up with repeat CMP in some time with his primary care physician, for further assessment of trend. CT abdomen pelvis wo con: Done during hospital stay showed: Enlarged pancreas with diffuse pancreatic edema. Marked surrounding inflammatory stranding with a small amount of scattered fluid compatible with acute pancreatitis. Recommend correlation with pancreatic enzymes. Serum triglyceride was normal. Overall patient responded well to above medical management and is being discharged home in stable condition, he will continue to follow with his PCP as outpatient. Physical Exam Const: COMMON NORMALS: patient oriented x3 HENMT: COMMON NORMALS: normocephalic and atraumatic HEAD & SCALP: normocephalic and atraumatic Resp: COMMON NORMALS: clear to auscultation bilaterally AUSCULTATION: clear to auscultation bilaterally Cardio: COMMON NORMALS: regular rate, regular rhythm, S1 normal heart sound present, S2 normal heart sound present, No gallops present (Cardio), No murmurs present (Cardio), No rub (Cardio) and Peripheral pulses 2+ throughout RATE: regular rate RHYTHM: regular rhythm HEART SOUNDS: S1 normal heart sound present and S2 normal heart sound present PERIPHERAL PULSES: Peripheral pulses 2+ throughout GI: COMMON NORMALS: Normal to inspection, nondistended, normoactive bowel chaz nds present, Soft to palpation, non-tender, No hepatosplenomegaly present and no masses AUSCULTATION: Yes normoactive bowel sounds PALPATION: Yes Soft to palpation and Yes No hepatosplenomegaly present RECTAL EXAM: Yes deferred OTHER: Mild epigastric tenderness Extremity: COMMON NORMALS: no clubbing, cyanosis or edema and no pedal edema Neuro: COMMON NORMALS: patient oriented x3 Discharge Data Studies Completed and Pending Completed Studies During Hospitalization Category Date Time Status CT abdomen pelvis wo con [id number] Stat Cat Scan 12/17/22 08:05 Completed US gall bladder [id number] Routine Ultrasound 12/17/22 12:30 Completed Radiology Impressions Abdomen/Pelvis CT 12/17/22 08:05 IMPRESSION: 1. Enlarged pancreas with diffuse pancreatic edema. Marked surrounding inflammatory stranding with a small amount of scattered fluid compatible with acute pancreatitis. Recommend correlation with pancreatic enzymes. 2. Reactive peripancreatic lymph nodes. 3. Small amount of free fluid in the pelvis. 4. No other acute findings. Gallbladder Ultrasound 12/17/22 12:30 IMPRESSION: Unremarkable sonogram evaluation. Laboratory Results WBC 6.8 10^3/uL (4.0-10.0) 12/18/22 03:59 RBC 4.69 10^6/uL (4.1-5.3) 12/18/22 03:59 Hgb 14.5 g/dL (11.7-16.6) 12/18/22 03:59 Hct 43.8 % (42.0-52.0) 12/18/22 03:59 MCV 93.4 fl (80-94) D 12/18/22 03:59 MCH 30.9 pg (28.0-34.0) 12/18/22 03:59 MCHC 33.1 g/dL (30.0-36.0) D 12/18/22 03:59 RDW 12.8 % (12.1-15.1) 12/18/22 03:59 Plt Count 123 10^3/cmm (130-400) L D 12/18/22 03:59 MPV 12.3 fL (7.4-10.4) H 12/18/22 03:59 Neut % (Auto) 71.7 % 12/18/22 03:59 Lymph % (Auto) 17.9 % 12/18/22 03:59 [place] % (Auto) 8.1 % 12/18/22 03:59 Eos % (Auto) 1.6 % 12/18/22 03:59 Baso % (Auto) 0.3 % 12/18/22 03:59 Neut # (Auto) 4.87 10^3/uL (1.8-7.7) 12/18/22 03:59 Lymph # (Auto) 1.2 10^3/uL (0.8-4.8) 12/18/22 03:59 [place] # (Auto) 0.6 10^3/uL (0.2-0.9) 12/18/22 03:59 Eos # (Auto) 0.1 10^3/uL (0.0-0.8) 12/18/22 03:59 Baso # (Auto) 0.0 10^3/uL (0.0-0.1) 12/18/22 03:59 Nucleated RBC % (auto) 0 % 12/18/22 03:59 Nucleated RBCs # 0.0 /100WBC 12/18/22 03:59 Sodium 134 mmol/L (136-145) L 12/18/22 03:59 Potassium 3.7 mmol/L (3.5-5.1) 12/18/22 03:59 Chloride 103 mmol/L (98-107) 12/18/22 03:59 Carbon Dioxide 24 mmol/L (22-29) 12/18/22 03:59 Anion Gap 10.7 (5-19) 12/18/22 03:59 BUN 7 mg/dL (6-20) 12/18/22 03:59 Creatinine 0.8 mg/dL (0.7-1.2) 12/18/22 03:59 GFR Calculation 116.9 mL/min (90-130) 12/18/22 03:59 Glucose 80 mg/dL (65-115) 12/18/22 03:59 Calculated Osmolality 275 mOsm/kg (285-295) L 12/18/22 03:59 Calcium 7.5 mg/dL (8.5-10.5) L 12/18/22 03:59 Magnesium 2.0 mg/dL (1.7-2.3) 12/18/22 03:59 Total Bilirubin 2.9 mg/dL (0.15-1.2) H 12/18/22 03:59 AST 74 U/L (0-40) H 12/18/22 03:59 ALT 41 U/L (0-41) 12/18/22 03:59 Alkaline Phosphatase 133 U/L (40-130) H 12/18/22 03:59 Total Protein 5.2 g/dL (6.6-8.7) L D 12/18/22 03:59 Albumin 3.3 g/dL (3.5-5.2) L 12/18/22 03:59 Globulin 1.9 g/dL (1.3-4.6) 12/18/22 03:59 Triglycerides 134 mg/dL (0-150) 12/17/22 07:10 Lipase 737 U/L (13-60) H 12/17/22 07:10 TSH 3.59 uIU/mL (0.27-4.20) 12/17/22 07:10 Urine Color [place] (Yellow) 12/17/22 10:50 Urine Appearance Clear (CLEAR) 12/17/22 10:50 Urine pH 6 (5-7) 12/17/22 10:50 Ur Specific [place] 1.020 (1.005-1.030) 12/17/22 10:50 Urine Protein 1+ (Negative) H 12/17/22 10:50 Urine Glucose (UA) Norm (Normal) 12/17/22 10:50 Urine Ketones 2+ (Negative) H 12/17/22 10:50 Urine Blood Neg (Negative) 12/17/22 10:50 Urine Nitrate Negative (Negative) 12/17/22 10:50 Urine Bilirubin 1+ (Negative) H 12/17/22 10:50 Urine Urobilinogen 4 mg/dL (Negative) H 12/17/22 10:50 Ur Leukocyte Esterase Trace (Negative) H 12/17/22 10:50 Urine RBC 0-4 /hpf (0-2) H 12/17/22 10:50 Urine WBC 0-4 /hpf (0-5) H 12/17/22 10:50 Ur Squamous Epith Cells 0-4 /hpf (0-5) H 12/17/22 10:50 Amorphous Sediment Not Reportable 12/17/22 10:50 Urine Bacteria Trace /hpf (NONE) 12/17/22 10:50 Urine Mucus 3+ /hpf 12/17/22 10:50 Vitals Last Vital Signs Temp 98.4 F 12/18/22 12:00 Pulse 83 12/18/22 12:00 Resp 16 12/18/22 12:00 BP 134/76 12/18/22 12:00 Pulse Ox 97 12/18/22 12:00 O2 Del Method Room Air 12/18/22 03:57 Discharge Plan Discharge Patient Disposition: Home Condition: Stable Prescriptions: New Tylenol 325 mg tablet 325 mg PO Q6H PRN (Reason: pain) Qty: 20 0RF Continued ondansetron 4 mg film 4 mg PO DAILY PRN (Reason: nausea and vomiting) Qty: 10 0RF omeprazole 40 mg capsule,delayed release(DR/EC) 40 mg PO DAILY paroxetine HCl 20 mg tablet 20 mg PO DAILY melatonin 10 mg Tablet 20 mg PO BEDTIME Discharge Orders: Discharge Order (Routine); Ordered 12/18/22 Ordered By: Mauri Gottlieb Referrals: Nawaf Jimenez MD [Referring] - (Please follow up w/ patient to arrange hospital follow up) Patient Instructions: Acetaminophen (By mouth), Pancreatitis (DC), Opioid Safety Discharge Attestations Time Spent in Discharge Care*: less than 30 min Quality Metrics Clinical Quality Measures [ No reported AMI, CVA or VTE this stay] Coding Level of Care Code Acute Code for Chg Fwd Diagnoses Pancreatitis K85.90 Elevated bilirubin R17 Depression F32.A Hypokalemia E87.6
== END 2022-12-18 14:54 | disposition home or self-care (01) | DRG 440 ==
LOC: ER 10:38 → MEDSURG 12:46
PROVIDERS: Admitting Provider Internal Medicine; Emergency Provider Family Medicine; Visit Provider Internal Medicine
DX: K85.90 Acute pancreatitis without necrosis or infection, unspecified (principal); F12.90 Cannabis use, unspecified, uncomplicated; F10.91 Alcohol use, unspecified, in remission; F32.A Depression, unspecified; F17.290 Nicotine dependence, other tobacco product, uncomplicated; E87.6 Hypokalemia
CPT/HCPCS: 36415; 74176; 76705; 80053; 81001; 83690; 83735; 84443; 84478; 85025; 96365; 96367; 96375; 99285; C9113; J2270; J2405; J3480; J7030